=== PATIENT | male | born 1970 | race Caucasian/White ===

== ENCOUNTER 2018-06-17 17:45 | Inpatient (IN) | payer BC ==
[~2018-06-17] VITALS: Ht 172.7 cm; Wt 92.3 kg
[2018-06-17 18:47] LABS: BASOPHIL % 0.3 % (0-2); PLATELET COUNT 200 x10^3mcL (130-400); RED CELL DISTRIBUTION WIDTH 12.6 % (11.5-14.5)
[2018-06-17 19:01] LABS: CALCIUM 8.9 mg/dL (8.5-10.1); CARBON DIOXIDE 25.5 mmol/L (21-32); CHLORIDE SERUM 103 mmol/L (98-107); CREATININE SERUM 0.8 mg/dL (0.7-1.3); GFR1 > 60 mL/min; GLUCOSE SERUM 134 mg/dL (74-106); POTASSIUM SERUM 4.2 mmol/L (3.5-5.1); SODIUM SERUM 138 mmol/L (136-145)
[2018-06-17 19:08] LABS: ALBUMIN 4.3 g/dL (3.4-5.0); ALKALINE PHOSPHATASE 53 U/L (46-116); ALT/SGPT 57 U/L (16-63); AST/SGOT 27 U/L (15-37); BILIRUBIN TOTAL 1.2 mg/dL (0.20-1.00); TOTAL PROTEIN, SERUM 7.9 g/dL (6.4-8.2)
[2018-06-17] MEDS ORDERED: TOPROL XL25 MG PO (20:17)
[2018-06-17 20:44] VITALS: BP 113/68
[2018-06-17 21:26] LABS: MAGNESIUM 1.9 mg/dL (1.8-2.4)
[2018-06-17 21:39] LABS: T3 TOTAL 1.23 ng/mL
[2018-06-17 21:44] LABS: PHOSPHOROUS 2.7 mg/dL (2.5-4.9)
[2018-06-17 21:50] LABS: CHOLESTEROL/HDL RATIO 6.7
[2018-06-17 21:51] LABS: FREE T4 0.95 ng/dL (0.76-1.46); FREE THYROXINE INDEX 2.6 ug/dL (1.4-4.5); T4(THYROXINE) 8.4 ug/dL (4.7-13.3)
[2018-06-17 23:39] LABS: microscopic required? NO
[2018-06-17 23:46] LABS: urine erythrocyte NEGATIVE (NEGATIVE)
[2018-06-18 04:30] VITALS: BP 97/58
[2018-06-18 07:25] LABS: BASOPHIL % 0.3 % (0-2); PLATELET COUNT 181 x10^3mcL (130-400); RED CELL DISTRIBUTION WIDTH 12.8 % (11.5-14.5)
[2018-06-18 07:35] LABS: CALCIUM 8.7 mg/dL (8.5-10.1); CARBON DIOXIDE 25.8 mmol/L (21-32); CHLORIDE SERUM 104 mmol/L (98-107); CREATININE SERUM 0.9 mg/dL (0.7-1.3); GFR1 > 60 mL/min; GLUCOSE SERUM 95 mg/dL (74-106); POTASSIUM SERUM 3.7 mmol/L (3.5-5.1); SODIUM SERUM 140 mmol/L (136-145)
[2018-06-18 09:04] VITALS: BP 127/64
[2018-06-18 12:58] VITALS: BP 128/79
[2018-06-18 17:00] VITALS: BP 125/74
[2018-06-18 20:44] VITALS: BP 114/77
[2018-06-19 05:54] VITALS: BP 114/73
[2018-06-19 06:08] LABS: BASOPHIL % 0.3 % (0-2); PLATELET COUNT 177 x10^3mcL (130-400); RED CELL DISTRIBUTION WIDTH 12.8 % (11.5-14.5)
[2018-06-19 06:27] LABS: CALCIUM 8.5 mg/dL (8.5-10.1); CARBON DIOXIDE 27.8 mmol/L (21-32); CHLORIDE SERUM 106 mmol/L (98-107); CREATININE SERUM 0.8 mg/dL (0.7-1.3); GFR1 > 60 mL/min; GLUCOSE SERUM 90 mg/dL (74-106); POTASSIUM SERUM 4.3 mmol/L (3.5-5.1); SODIUM SERUM 140 mmol/L (136-145)
[2018-06-19 08:59] VITALS: BP 144/84
[2018-06-19] MEDS ORDERED: ZES5 PO (12:19)
[2018-06-19] MEDS ORDERED: LIPI20 PO (12:19)
[2018-06-19] MEDS ORDERED: ECO81 PO (12:19)
[2018-06-19 12:25] VITALS: BP 144/84
[2018-06-19 13:10] VITALS: BP 117/87
== END 2018-06-19 14:38 | disposition home or self-care (01) | DRG 206 ==
LOC: ED 17:45 → DU 20:01
PROVIDERS: Emergency Medicine; Internal Medicine
DX: M94.0 Chondrocostal junction syndrome [Tietze] (principal); I10 Essential (primary) hypertension; K21.9 Gastro-esophageal reflux disease without esophagitis; E66.9 Obesity, unspecified; E78.5 Hyperlipidemia, unspecified; Z88.0 Allergy status to penicillin; Z83.3 Family history of diabetes mellitus; Z68.31 Body mass index [BMI] 31.0-31.9, adult
CPT/HCPCS: 83880; 84439; J7030; Q0092